=== PATIENT | female | born 1990 | race Hispanic/Latino ===

== ENCOUNTER → 2018-08-23 | Outpatient (CLI) | payer BC ==
[~2018-08-23] MED LIST: LIDOCAINE 1% 5ML-MPF INJ ONE; LIDOCAINE HCL 1% 2 ML AMP ONE
--- NOTE | 2018-08-23 10:46 | Diagnostic Imaging Report ---
PROCEDURE:BIOPSY THYROID FNA COMPARISON:None. Preprocedure diagnosis: Left thyroid nodule Post procedure diagnosis: Left thyroid nodule Thermoforming Operator: Yandel Cowart M.D. Complications: No immediate Estimated blood loss: Minimal Blood products administered: None Sedation/anesthesia: None Additional medications: Lidocaine 1% for local anesthesia Implants/grafts: None Specimens: Fine needle aspiration specimens x3 Condition at completion of procedure: Stable Disposition: Discharged home FINDINGS: Informed consent was obtained and documented in the medical record after discussion of risks and benefits. The patient was placed in the supine position on the sonographic table. Preliminary sonographic evaluation confirmed presence of a left thyroid nodule. The left cervical region was prepped and draped in the standard sterile fashion. 1% lidocaine was infiltrated into the skin and subcutaneous tissues for local anesthesia. Under continuous sonographic guidance a total of 3 fine needle aspiration specimens were obtained using 25 gauge needles. Specimens were submitted to on site cytopathology personnel and adequacy was confirmed. At the conclusion of sampling the needle was removed and a sterile dressing was applied. Patient tolerated the procedure well without immediate complication. CONCLUSION: Successful ultrasound-guided fine needle aspiration of a left thyroid nodule without immediate complication. Dictated by: Yandel Cowart M.D. on 08/23/2018 at 10:54 Electronically approved by: Yandel Cowart M.D. on 08/23/2018 at 10:54
--- NOTE | 2018-08-23 10:47 | Diagnostic Imaging Report ---
PROCEDURE:ULTRASOUND GUIDANCE FOR PROCEDURE COMPARISON:None. INDICATIONS:THYROID NODULE LEFT Findings: See conclusion CONCLUSION: For full detailed report refer to "BIOPSY THYROID FNA" from 08/23/2018. Dictated by: Yandel Cowart M.D. on 08/23/2018 at 10:55 Electronically approved by: Yandel Cowart M.D. on 08/23/2018 at 10:55
== END ==
LOC: US 08:17
PROVIDERS: ATTEND Emergency Medicine
DX: E04.9 Nontoxic goiter, unspecified (principal)
CPT/HCPCS: 10022; 76942; 88112; 88305; J2001